=== PATIENT | female | born 1955 | race Caucasian/White ===

== ENCOUNTER → 2017-10-04 | Outpatient (CLI) | payer MEDICAID ==
[2017-10-04] MEDS: IODIXANOL LOCM 100 ML BTL (11:57)
[2017-10-04] MEDS: SOD CHLORIDE 0.9% 100 ML (11:57)
== END | disposition home or self-care (01) ==
LOC: C/S 10:55
DX: C18.9 Malignant neoplasm of colon, unspecified (principal); N28.1 Cyst of kidney, acquired; N20.0 Calculus of kidney; K43.9 Ventral hernia without obstruction or gangrene; K57.90 Diverticulosis of intestine, part unspecified, without perforation or abscess without bleeding
CPT/HCPCS: 74177